=== PATIENT | female | born 1965 | race Caucasian/White ===

== ENCOUNTER → 2019-12-18 10:45 | Outpatient (BNVA) | payer MEDICARE, MEDICAID, SELFPAY | PROVIDERS: Family Provider Family Medicine; PCP Family Medicine; Visit Provider Obstetrics & Gynecology | DX: R23.2 Flushing (principal) | CPT/HCPCS: 83001 ==

== ENCOUNTER → 2020-08-17 11:19 | Outpatient (BNVA) | payer MEDICARE, MEDICAID, SELFPAY | PROVIDERS: Family Provider Family Medicine; PCP Family Medicine; Visit Provider Obstetrics & Gynecology | DX: Z87.2 Personal history of diseases of the skin and subcutaneous tissue (principal) | CPT/HCPCS: 88175 ==

== ENCOUNTER → 2020-09-01 10:04 | Outpatient (BNVA) | payer MEDICARE, MEDICAID, SELFPAY | PROVIDERS: Family Provider Family Medicine; PCP Family Medicine; Visit Provider Obstetrics & Gynecology | DX: N83.202 Unspecified ovarian cyst, left side (principal) | CPT/HCPCS: 76830 ==

== ENCOUNTER → 2020-09-15 15:46 | Outpatient (BNVA) | payer MEDICARE, MEDICAID, SELFPAY | PROVIDERS: Family Provider Family Medicine; PCP Family Medicine; Referring Provider Family Medicine; Visit Provider Podiatrist Foot & Ankle Surgery | DX: M79.674 Pain in right toe(s) (principal) | CPT/HCPCS: 73630 ==

== ENCOUNTER 2020-09-27 20:00 | Outpatient (CLI) | payer MEDICARE, MEDICAID, SELFPAY | END 2020-09-27 20:01 | disposition home or self-care (01) | LOC: SLEEP 09-28 14:41 | PROVIDERS: Family Provider Family Medicine; PCP Family Medicine; Visit Provider Family Medicine | DX: G47.33 Obstructive sleep apnea (adult) (pediatric) (principal) | CPT/HCPCS: 95811 ==

== ENCOUNTER 2021-07-31 10:18 | Outpatient (CLI) | payer MEDICARE, MEDICAID, SELFPAY ==
--- NOTE | 2021-07-31 10:26 | CT_ITS ---
WS: [id number] LDCT LUNG CANCER SCREENING HISTORY: HX OF TOBACCO USE TECHNIQUE: Axial imaging performed from the apices to 1 cm below the costophrenic angles. Coronal and sagittal reformats are submitted with axial MIP series. All CT scans at [facility] use at least one of these dose optimization techniques: automated exposure control; mA and/or kV adjustment per patient size (includes targeted exams where dose is matched to clinical indication); or iterativ e reconstruction. DLP: 55.77 mGy.cm DIvol: 1.58 mGy COMPARISON: None available. Diagnostic quality: Suboptimal secondary to body habitus. Lung Nodules: No suspicious nodules. There is a 5 mm intrapulmonary lymph node along the short fissur e. Lungs: Hyperexpanded from emphysema. Heart: Normal size. No effusion. Other findings: Limited evaluation of the mediastinal structures due to body habitus. CT/CT lung screening [id number] IMPRESSION: LUNG-RADS: 2-Benign Appearance or Behavior FOLLOW UP: 12 Month: Continue annual screening with LDCT OTHER FINDINGS (S MODIFIER): None.
--- NOTE | 2021-07-31 11:06 | MM_ITS ---
WS: [id number] BILATERAL SCREENING DIGITAL MAMMOGRAM WITH CAD HISTORY: SCREENING COMPARISON: 12/27/2014 and 08/27/2013 Bilateral CC and MLO views submitted. Computer aided detection analyzed. Breast composition: There are scattered areas of fibroglandular density. No suspicious masses, microc alcifications or architectural distortion. MM/[place] [id number] IMPRESSION: BI-RADS: 1-Negative FOLLOW UP: 1 Year Follow-up
== END 2021-07-31 10:19 | disposition home or self-care (01) ==
PROVIDERS: PCP Physician Assistant; Visit Provider Physician Assistant
DX: Z12.31 Encounter for screening mammogram for malignant neoplasm of breast (principal); Z12.2 Encounter for screening for malignant neoplasm of respiratory organs; Z87.891 Personal history of nicotine dependence
CPT/HCPCS: 71271; 77067

== ENCOUNTER → 2021-08-14 09:52 | Outpatient (BNVA) | payer MEDICARE, MEDICAID, SELFPAY | PROVIDERS: PCP Physician Assistant; Visit Provider Obstetrics & Gynecology | DX: Z87.42 Personal history of other diseases of the female genital tract (principal); N95.0 Postmenopausal bleeding | CPT/HCPCS: 82670; 83001; 88175 ==

== ENCOUNTER → 2021-08-23 09:40 | Outpatient (BNVA) | payer MEDICARE, MEDICAID, SELFPAY | PROVIDERS: PCP Physician Assistant; Visit Provider Obstetrics & Gynecology | DX: N95.0 Postmenopausal bleeding (principal) | CPT/HCPCS: 76830 ==

== ENCOUNTER → 2021-09-22 09:18 | Outpatient (BNVA) | payer MEDICARE, MEDICAID, SELFPAY | PROVIDERS: PCP Physician Assistant; Visit Provider Obstetrics & Gynecology | DX: N95.0 Postmenopausal bleeding (principal); Z20.822 Contact with and (suspected) exposure to COVID-19 | CPT/HCPCS: 87635 ==

== ENCOUNTER 2021-09-28 05:48 | Day surgery (SDC) | payer MEDICARE, MEDICAID, SELFPAY ==
[2021-09-27 10:05] VITALS: BMI 57.1
[2021-09-28 06:11] VITALS: BP 138/82; PULSE 67; RESP 17; TEMP 36.6; O2SAT 97
[2021-09-28] MEDS: sodium chloride 0.9% 1,000 ML 30 ML IV (06:15)
[2021-09-28 06:29] LABS: OR HCG Qualitative Urine Negative (Negative)
[2021-09-28] MEDS: scopolamine 1.5 Patch 1 PATCH TRANSDERMA (06:33)
[2021-09-28 06:43] LABS: Basophils # 0.2 10^3/uL (0.0-0.1); Basophils % 1.6 %; Eosinophils # 0.4 10^3/uL (0.0-0.8); Eosinophils % 4.3 %; Hematocrit 36.8 % (37.0-47.0); Hemoglobin 11.1 g/dL (11.5-15.3); Lymphocytes # 2.5 10^3/uL (0.8-4.8); Lymphocytes % 26.7 %; Mean Corpuscular HGB Conc 30.2 g/dL (30.0-36.0); Mean Corpuscular Hemoglobin 27.6 pg (28.0-34.0); Mean Corpuscular Volume 91.5 fl (81-99); Mean Platelet Volume 11.8 fL (7.4-10.4); Monocytes # 0.4 10^3/uL (0.2-0.9); Monocytes % 4.4 %; Neutrophils # 5.89 10^3/uL (1.8-7.7); Neutrophils % 62.7 %; Nucleated Red Blood Cells % 0 %; Platelet Count 243 10^3/cmm (130-400); Red Blood Count 4.02 10^6/uL (4.1-5.3); Red Cell Distribution Width 14.5 % (12.1-15.1); White Blood Count 9.4 10^3/uL (4.0-10.0)
--- NOTE | 2021-09-28 06:47 | P.HPUD_ITS ---
Surgery/Procedure H&P Update DATE OF PROCEDURE: September 28, 2021 DATE H&P PERFORMED: 08/28/21 H&P UPDATE INFORMATION: I have reviewed H&P completed within last 30 days, I have examined patient prior to procedure, No changes to prior documentation and H&P is in [facility] EMR on date indicated PREOP DIAGNOSIS: Postmenopausal bleeding PLANNED PROCEDURE: Operation Date: 09/28/21 07:00 Proposed Procedures p Hysteroscopy w/ Myosure 27830 [id number] N95.0(Not Applicable) - Estella Lozano MD s Dilation And Curettage (D&C)(Not Applicable) - Estella Quintero MD
[2021-09-28 06:55] LABS: Alanine Aminotransferase 15 U/L (0-33); Albumin Level 3.7 g/dL (3.5-5.2); Alkaline Phosphatase 130 IU/L (35-105); Anion Gap 14.7 (5-19); Aspartate Amino Transferase 16 U/L (0-32); Blood Urea Nitrogen 16 mg/dL (6-20); Calcium 9.2 mg/dL (8.5-10.5); Carbon Dioxide 26 mmol/L (22-29); Chloride 101 mmol/L (98-107); Globulin 3.7 g/dL (1.3-4.6); Glomerular Filtration Rate 86.9 mL/min (90-130); Glucose 106 mg/dL (65-115); Osmolality Calculated 286 mOsm/kg (285-295); Potassium 4.7 mmol/L (3.5-5.1); Sodium 137 mmol/L (136-145); Total Bilirubin 0.3 mg/dL (0.15-1.2); Total Protein 7.4 g/dL (6.6-8.7)
--- NOTE | 2021-09-28 07:00 | P.HP_ITS ---
Same Day Surgery H&P Indication for Procedure/HPI DATE OF PROCEDURE: September 29, 2021 CHIEF COMPLAINT/INDICATIONFOR SURGICAL PROCEDURE: Postmenopausal bleeding PREOP DIAGNOSIS: Postmenopausal bleeding PLANNED PROCEDRUE: Operation Date: 09/28/21 07:00 Proposed Procedures p Hysteroscopy w/ Myosure 27990 04866 N95.0(Not Applicable) - Estella Quintero MD s Dilation And Curettage (D&C)(Not Applicable) - Estella Quintero MD Medications/Allergies* Home Medications Medication Instructions Recorded Confirmed Type amlodipine 5 mg tablet 5 mg PO QDAY 12/08/19 09/28/21 History ferrous sulfate 325 mg (65 mg 325 mg PO QDAY 12/08/19 09/28/21 History iron) tablet fluticasone 250 mcg-salmeterol 50 1 inh INHALATION BID 12/08/19 09/28/21 History mcg/dose blistr powdr for inhalation montelukast 10 mg tablet 10 mg PO QDAY 12/08/19 09/28/21 History omeprazole 20 mg capsule,delayed 20 mg PO QDAY 12/08/19 09/28/21 History release zolpidem 12.5 mg tablet,extended 12.5 mg PO DAILY tab 12/08/19 09/28/21 History release,multiphase tizanidine 4 mg tablet 4 mg PO TID PRN 08/10/20 09/28/21 History furosemide 20 mg tablet 20 mg PO QDAY PRN 10/18/20 09/28/21 History potassium chloride 10 mEq 20 meq PO QDAY PRN 10/18/20 09/28/21 History tablet,extended release albuterol sulfate 90 mcg/actuation 1 inh INHALATION QID 02/08/21 09/28/21 History aerosol inhaler ibuprofen 800 mg tablet 800 mg PO Q6H 02/08/21 09/27/21 History pregabalin 150 mg capsule 150 mg PO BID 05/31/21 09/28/21 History levothyroxine 112 mcg capsule 112 mcg PO DAILY 08/28/21 09/28/21 History cetirizine 10 mg tablet 10 mg PO DAILY 09/19/21 09/28/21 History venlafaxine 37.5 mg 37.5 mg PO DAILY 09/19/21 09/28/21 History capsule,extended release 24 hr Allergies/Adverse Reactions Allergy/AdvReac Type Severity Reaction Status Date / Time budesonide [From Symbicort] Allergy Intermediate Broke out Verified 08/28/21 15:11 inside of her mouth formoterol [From Symbicort] Allergy Intermediate Broke out Verified 08/28/21 15:11 inside of her mouth amoxicillin [From Augmentin] Allergy Unknown Rash Verified 08/28/21 15:11 clavulanic acid Allergy Unknown Rash Verified 08/28/21 15:11 [From Augmentin] clindamycin Allergy Unknown Throat Verified 08/28/21 15:11 swelling gabapentin Allergy Unknown insomnia Verified 08/28/21 15:11 Penicillins Allergy Unknown rash Verified 08/28/21 15:11 doxycycline Allergy ALGY-Bliste Verified 08/28/21 15:11 r duloxetine [From Cymbalta] Allergy Unknown Verified 09/19/21 09:30 codeine AdvReac Unknown Bradycardia Verified 08/28/21 15:11 morphine AdvReac Unknown bradycardia Verified 08/28/21 15:11 Pertinent History/Comorbid Conditions* HPI Ms. Schmitz is a 56 year old 3 para 1113 (twins) with an LMP -menopause in January of 2019 who presents for evaluation of postmenopausal uterine bleeding. -When I first saw her on 08/17/2020 when she followed up with me for evaluation of an abnormal cyst endocervical polyp/identified when patient was in [place] would need to get repeat ultrasound testing and all records from [place] were requested. She had an ultrasound on 09/01/2020 and missed 2 or 3 follow-up visits and finally ended up seeing Dr. Lu to get ultrasound results on 09/26/2020. I last saw her on 10/18/2020 and we discussed findings of the ultrasound which showed a thickened endometrium. I also discussed results of testing obtained from her visit in [place] and based on this we recommended hysteroscopy. She desired to do an office hysteroscopy procedure however missed appointments in October 2020 and in November 2020 and was not compliant with care and did not follow-up. ---> I saw her on 08/14/2021 when she reported postmenopausal bleeding. She states that she has had no vaginal bleeding since achieving menopause. She started to have pain this past Saturday-08/14/2021 and started bleeding vaginally. Her bleeding has not been heavy and usually just enough to stain a couple of panty liners a day. She denies passing clots. She just has lower abdominal cramping in terms of pain and denies any other symptoms. She feels this is because of stress. She states that her sister 1 week ago from a myocardial infarction and her stepdaughter about a month ago from complications of Covid so it has been a pretty tough time for her. -Pelvic exam at that time was overall normal with some brownish blood noted on the cervix. Cotesting was obtained and normal and pelvic ultrasound ordered and she presents today to discuss results. 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 Denies any hospitalizations or intubations for asthma. Symptoms controlled with Advair and albuterol as needed. Managed by PMD-does not have a food and nutrition services supervisor Benign essential HTN Diagnosed in 2016 and followed by cardiology-Dr. Strickland as well as her primary care provider Hypothyroid Diagnosed in 2017 managed by primary care provider. She does not have an insurance account specialist Mixed hyperlipidemia Diagnosed in 2017 managed with medication managed by her primary care provider No pertinent past medical history Denies diabetes, seizures, DVT/PE PCP: Zoraida Pacheco Sleep apnea On CPAP since 2014 Surgical History H/O shoulder surgery 09/23/2013-rotator cuff repair by Dr. Jones at [facility] History of tubal ligation 1989 via umbilical incision S/P cholecystectomy 1989--open procedure via right upper quadrant incision S/P trigger finger release 2013 Family History Brother Diabetes Hyperlipidemia Hypertension Heart disease Mother Hypertension Hyperlipidemia Heart disease Father Hypertension Hyperlipidemia Heart disease Grandmother Ovarian cancer maternal, age at diagnosis unknown Sister Hyperlipidemia Hypertension DVT (deep venous thrombosis) Pulmonary embolism Heart disease of myocardial infarction at age 61 Grandfather Stroke paternal Denies family history of Colon cancer Breast cancer Uterine cancer Social History Smoking and tobacco status: former smoker Alcohol intake: current Alcohol intake frequency: holidays/special occasions only History of recent travel: No Tobacco Use: Started smoking at age 16 and smoked up to one pack per day until she quit in 2005. Denies any tobacco use since then. Drug Use: Reports history of methamphetamine use from [id number]. Denies any drug use since then. Alcohol Use: Drinks socially, twice yearly on average. Work/Study Status: Disabled due to chronic pain. Last [facility] Appointment: 12/18/2019@[email or web address] Other Female Reproductive History: Menstrual History Comment: Menarche at the age of 13, regular 30 day cycles lasting for 7-8 days. She reached menopause in January 2019 and denies any vaginal bleeding since then until 08/11/2021 when she had an episode of postmenopausal bleeding Sexual History: Sexual History Comment: Coitarche at age 17, less than 5 lifetime partners, has been with her current partner, her , Kwaku, since 2016. He does not work as he is disabled due to COPD STD History Comment: Denies history of sexually transmitted diseases Contraception History Comment: Used control pills in the past for contraception. Had a tubal ligation in 1989 and denies any hormones since then. Denies any hormones postmenopausally. History History History 3 Term 1 Miscarriages/Ectopic 1 1 Living Children 3 Other History: , x 2, (Milad Murray and Geo) SAB x 1 1983-SAB, no D&C needed 1987-, uncomplicated 1989-twins, 32 weeks, vaginal delivery Physical Exam Narrative: EXAM NARRATIVE: General: well developed, well nourished, no acute distress Neuro/Psych: alert, oriented to time, place and person. 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) -FSH-58.4-postmenopausal -Estradiol-7.5-postmenopausal range PAP Patient reports abnormal Pap smears in the past. 08/14/2021----([facility])--[facility]--->Negative for intraepithelial lesion or malignancy., negative high risk HPV. 08/17/2020---([facility])----> negative for intraepithelial lesion or malignancy, negative high-risk HPV 03/03/2020---([place])-----> negative endothelial lesion or malignancy, POSITIVE HIGH RISK HPV(scanned) HAND KNITTER Ultrasound 4) 08/23/2021([facility]) --------> the uterus measures 5.7 x 3.3 x 4.0 cm and is anteverted. The endometrium is thickened and heterogenous measuring 1.7 cm. No obvious masses noted. The left ovary measures 2.4 x 1.7 x 1.4 cm and the right ovary measures 2.1 x 2.4 x 1.8 cm with calcifications. No other adnexal masses, no free fluid. 3) 09/01/2020- ([facility]-h/o polyp) -The uterus is anteverted measuring 7.1 x 2.9 x 4.7 cm with a fundal fibroid measuring 1.1 x 1.2 x 1.1 cm. The endometrium measures 7.8 mm. The right ovary measures 2.0 x 1.4 x 1.5 cm and the left ovary measures 2.0 x 1.7 x 2.6 cm. There is a calcified left ovarian cyst measuring 1.2 x 1.2 cm. No free fluid noted. 2) sonogram from [place], [place] has been requested but not received. 1) 12/07/13-([facility])-menorrhagia -Bilateral ovaries appeared normal with no cysts, uterus measured 8.1 x 3.9 x 4.6 cm, anteverted with a heterogeneous myometrium containing a 1.3 x 1.3 x 1.6 cm fibroid on the right anterior side. Endometrial stripe is heterogeneous measuring 1.2 cm. No free fluid in the cul-de-sac. Mammogram Denies abnormal mammograms or breast biopsies in the past. 07/31/2021 -----([facility])----> BI-RADS 1. Negative. Recommend annual screening mammogram 2018-----([facility])---->normal per patient. 12/27/14-----([facility])---->BI-RADS category 2B. Benign findings, recommend repeat mammogram in one year Last mammogram was normal in 2012. Colonoscopy 2018---([facility])--->Normal per patient. (Rectal bleeding) Radiology 1) Endometrial Biopsy: 12/17/2013-evaluation of menorrhagia -MID secretory endometrium, post ovulatory day 5-7 Assessment & Plan Assessment & Plan (1) Postmenopausal bleeding: Assessment & Plan - Estella Quintero MD: -I explained that any amount of bleeding after attaining menopause needed to be evaluated. I discussed that the differential diagnosis for postmenopausal bleeding is atrophic endometrium, polyps, endometrial growths endometrial hyperplasia, endometrial cancer versus normal endometrium. Discussed that the most common cause of bleeding is atrophic endometrium and not malignancy however it does need evaluation. She understands this. -Discussed results of blood work-FSH and estradiol that would definitely postmenopausal. Discussed results of cotesting which were negative on 08/14/2021 -Reviewed with her that the most recent ultrasound we have from August 2020 did show thickened endometrium and that she has been noncompliant with follow-up and recommendations of hysteroscopy. -Reviewed results of the ultrasound done on 08/23/2021 that continued to show thickened endometrium much bigger than last year now measuring 1.7 cm. My concern is that there is a polyp or some other pathology and I would definitely recommend a hysteroscopy. -Given my high suspicion for some sort of endometrial lesion I would not recommend an office procedure as I feel like she will require operative in tervention and I would recommend this be done in the operating room. Discussed procedure of hysteroscopy dilation and curettage. Discussed use of the Chavez sure device. Discussed risks of bleeding, infection, anesthesia risk, damage to surrounding organs and uterine perforation. All her questions were answered and she desires to proceed with surgery -Discussed importance of being compliant given a high risk for malignancy and hyperplasia with this and I would like to do this as soon as possible pending medical clearance given her multiple other medical problems. -Surgical consents were signed today-08/28/2021 -Covid testing requirements discussed and risk of Covid reviewed with patient -Patient to be scheduled for surgery on 09/14/2021 and needs medical clearance prior to surgery --All her questions were answered and she agrees with the current plan of care. I spent 45 minutes with the patient in discussion and counseling as documented above This documentation was created by [employer] utilities estimator and drafter software (known for inherent utilities estimator and drafter error). Every effort was made to assure accuracy of utilities estimator and drafter. Any obvious errors or omissions should be clarified with the author of the document. Status: Acute Code(s): N95.0 - Postmenopausal bleeding (2) Thickened endometrium: Assessment & Plan - Estella Quintero MD: -Reviewed with her findings from previous visits and discussed that she was supposed to have follow-up for her thickened endometrium/endocervical/endometrial polyp however she was lost to follow-up. Patient states that she just forgot about it and that she had no problems did not see the need to follow-up. -Reviewed records that were [facility] by Dr. Corcoran.. Patient was seen on 03/03/2020 and was told by her primary care doctor that she had a Endo cervical polyp. This was attempted to be removed that day and Pap smear collected. Incomplete removal was documented by Dr. Alcazar and the plan was to repeat an ultrasound and possibly do hysteroscopy. Patient presented back for reevaluation on 05/26/2020 and ultrasound shows a mass of polyp in the endocervix and she was scheduled for a hysteroscopy. Records have been scanned into the computer. -----> discussed with the results of ultrasound done on 09/01/2020-largely normal except for slightly thickened endometrium measuring 7.8 mm. Reviewed normal postmenopausal endometrial thickness and discussed that with records received there is concern for an endometrial polyp and I would recommend some sort of visualization of the endometrial cavity. -Patient to be scheduled for hysteroscopy-see discussion above Status: Acute Pertinent Exam Findings alert, oriented x 3, clear to auscultation bilaterally and regular rate & rhythm Recommendations Surgery/Procedure today Coding Level of Care Code Acute Entry Level Marketing Representative for Allie Meneses
--- NOTE | 2021-09-28 07:03 | P.ANESASSM_ITS ---
Pre-Anesthetic Assessment Pre-Anesthetic Assessment: Height/Weight: Height 1.78 m Weight 180.53 kg Temp Pulse Resp BP Pulse Ox 97.8 F 67 17 138/82 97 09/28/21 06:11 09/28/21 06:11 09/28/21 06:11 09/28/21 06:11 09/28/21 06:11 Preop Diagnosis: Postmenopausal bleeding Proposed Procedure: Operation Date: 09/28/21 07:00 Proposed Procedures p Hysteroscopy w/ Myosure 85751 30348 N95.0(Not Applicable) - Estella Lozano MD s Dilation And Curettage (D&C)(Not Applicable) - Estella Quintero MD Was Beta April taken within 24 hours: N/A Was Clonidine taken within 24 hours: N/A Last intake: Intake Last Liquid Date 09/27/21 Last Liquid Time 20:00 Last Solid Date 09/27/21 Last Solid Time 20:00 Social: Social History: No tobacco Exam: Pre-Anes Outpt Exam: alert, oriented x 3, clear to auscultation bilaterally and regular rate & rhythm Airway: Submandibular: WNL Cervical ROM: WNL MP: 2 Additional comments: No teeth. History/ROS: No significant history except as noted and No significant complaints Pulmonary: Pulmonary: Sleep apnea GI: GI: GERD Metabolic: Metabolic: Morbid obesity and Thyroid Comments: BMI 57 Anesthetic Plan: ASA status: 3 Anesthesia: Anesthesia Evaluation, General and MAC Risk of > 500 ml blood loss (7ml/kg in children): No Meds/Allergies 2 Current Medications: Current Medications Generic Name Dose Route Start Last Admin Trade Name Freq PRN Reason Stop Dose Admin Sodium Chloride 1,000 mls @ 30 ml s/hr 09/28/21 06:00 09/28/21 06:15 Sodium Chloride 0.9% IV 09/29/21 05:59 30 mls/hr .Q24H PEARL Administration PFSH Anesthesia PFSH: Medical History Asthma Diagnosed in the 1980s. Denies any hospitalizations or intubations for asthma. Symptoms controlled with Advair and albuterol as needed. Managed by PMD-does not have a pulmonologist intensivist Benign essential HTN Diagnosed in 2017 and followed by cardiology-Dr. Strickland as well as her primary care provider Hypothyroid Diagnosed in 2017 managed by primary care provider. 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 Jones at [facility] [place] History of tubal ligation 1989 via umbilical incision S/P cholecystectomy 1989--open procedure via right upper quadrant incision S/P trigger finger release 2013 Family History Brother Diabetes Hyperlipidemia Hypertension Heart disease Mother Hypertension Hyperlipidemia Heart disease Father Hypertension Hyperlipidemia Heart disease Grandmother Ovarian cancer maternal, age at diagnosis unknown Sister Hyperlipidemia Hypertension DVT (deep venous thrombosis) Pulmonary embolism Heart disease of myocardial infarction at age 61 Grandfather Stroke paternal Denies family history of Colon cancer Breast cancer Uterine cancer Social History Smoking and tobacco status: former smoker Alcohol intake: current Alcohol intake frequency: holidays/special occasions only History of recent travel: No Data Anesthesia CBC & Chem 7: 09/28/21 06:15 09/28/21 06:15 Other Labs: Laboratory Results - last 48 hr 09/28/21 09/28/21 09/28/21 06:15 06:15 06:16 WBC 9.4 RBC 4.02 L Hgb 11.1 L Hct 36.8 L MCV 91.5 MCH 27.6 L MCHC 30.2 RDW 14.5 Plt Count 243 MPV 11.8 H Neut % (Auto) 62.7 Lymph % (Auto) 26.7 Lyman % (Auto) 4.4 Eos % (Auto) 4.3 Baso % (Auto) 1.6 Neut # (Auto) 5.89 Lymph # (Auto) 2.5 Lyman # (Auto) 0.4 Eos # (Auto) 0.4 Baso # (Auto) 0.2 H Nucleated RBC % (auto) 0 Nucleated RBCs # 0.0 Sodium 137 Potassium 4.7 Chloride 101 Carbon Dioxide 26 Anion Gap 14.7 BUN 16 Creatinine 0.7 GFR Calculation 86.9 L Glucose 106 Calculated Osmolality 286 Calcium 9.2 Total Bilirubin 0.3 AST 16 ALT 15 Alkaline Phosphatase 130 H Total Protein 7.4 Albumin 3.7 Globulin 3.7 Urine HCG, Qual Negative Cardiac Studies: No Data to Display
[2021-09-28 07:46] VITALS: BP 129/75; PULSE 70; RESP 18; TEMP 36.4; O2SAT 98
[2021-09-28 07:50] VITALS: BP 154/72; PULSE 69; RESP 20; O2SAT 97
[2021-09-28 07:55] VITALS: BP 124/69; PULSE 70; RESP 20; TEMP 36.8; O2SAT 97
--- NOTE | 2021-09-28 07:57 | PM.OP ---
Operative Report Date of procedure: September 28, 2021 OPERATIVE REPORT Date of surgery: 09/28/2021 Date of dictation: 09/28/2021 Preoperative diagnosis: Postmenopausal bleeding, suspected endometrial polyp Postoperative diagnosis/findings: Grade 3 rectocele, grade 1 cystocele and uterine prolapse, prolapsing vaginal wall, small midposition uterus. Normal endocervical cavity, normal endometrial cavity with thinned out endometrium except for a 1 cm polyp near the left tubal ostia on the anterior wall. Bilateral ostia visualized. Fluid deficit was 200 mL Procedure done: Hysteroscopy, endometrial polypectomy and curettage with MyoSure Specimens removed/disposition of specimens: Endometrial curettings with endometrial polyp Surgeon: Dr. Estella Shields Lead Dental Assistant: Osiris Anesthesia: MAC Estimated blood loss: Less than 25 ml Intravenous fluids: 500 Urine output: 20 mL of urine via red rubber catheter Medications: As per anesthesia records Complications: None PROCEDURE: After consent was obtained patient was taken to the operating room where she is placed under MAC without any difficulty. She was placed supine on the table in lithotomy position. Care was taken to ensure that her legs were well positioned to avoid pressure points. She was then prepped and draped in the usual sterile fashion. Exam under anesthesia was done at this time which showed findings noted above. The weighted speculum and lateral vaginal wall retractors were placed in the vagina and the cervix was visualized. The cervix appeared normal. The cervix was dilated to a 16 Collins dilator without any difficulty . This allowed placement of a Myosure hysteroscope into the uterine cavity without any difficulty. Once the hysteroscope was placed in the uterine cavity, the endocervical canal was visualized and appeared normal .the uterine cavity was visualized and thin endometrium was noted on all graf and a single 1 cm polyp was noted near the left tubal ostia arising from the anterior wall. The MyoSure lite was introduced and under direct visualization this polyp was removed without any difficulty. The Chavez sure was then used to take sampling of the endometrium from all 4 uterine graf. The endometrial curettings with polyp were sent to pathology . All instruments were withdrawn from the uterus. No active bleeding was noted from the cervix. Tenaculum was removed and no bleeding was noted from the cervix. Good hemostasis was achieved. All instruments were removed from the vagina. Patient was cleaned well and anesthesia was reversed without any difficulty. She was taken to the recovery in a stable condition. FOLLOW UP: Follow-up in 2 weeks and 6 weeks with surgeon MEDICATION ON DISCHARGE: Colace 100 mg by mouth every 12 hours when necessary constipation-patient has medication at home Ibuprofen 800 mg by mouth every 8 hours when necessary pain-patient has medication at home. Continue other home medication DISPOSITION: Home in a stable condition This documentation was created by [employer] pressure tester software (known for inherent pressure tester error). Every effort was made to assure accuracy of pressure tester. Any obvious errors or omissions should be clarified with the author of the document. Pre-op Diagnosis: Postmenopausal bleeding
[2021-09-28 07:58] VITALS: BP 164/67; PULSE 65; RESP 18; TEMP 36.8; O2SAT 97
[2021-09-28 08:14] VITALS: BP 150/66; PULSE 61; RESP 18; TEMP 36.7; O2SAT 97
--- NOTE | 2021-09-28 15:30 | ANE.PACU2 ---
Inpatient post-anesthesia follow up: Airway intact: Yes Vital signs: Temperature 98.1 F Pulse Rate 61 Respiratory Rate 18 Blood Pressure 150/66 Pulse Oximetry 97 Oxygen Delivery Me thod Room Air Oxygen Flow Rate 8 Fraction of Inspir ed Oxygen Hydration adequate: Yes Nausea and vomiting: No Pain level: 2 Mental status: Baseline
== END 2021-09-28 08:47 | disposition home or self-care (01) ==
PROVIDERS: PCP Physician Assistant; Visit Provider Obstetrics & Gynecology
PROC: 0UDB8ZZ Extraction of Endometrium, Via Natural or Artificial Opening Endoscopic (ICD-10-PCS; CPT 58558; principal; 2021-09-28 07:00)
PROC: (CPT 58120; 2021-09-28 07:00)
DX: N95.0 Postmenopausal bleeding (principal); N84.8 Polyp of other parts of female genital tract; N81.4 Uterovaginal prolapse, unspecified; N81.6 Rectocele; I10 Essential (primary) hypertension; E03.9 Hypothyroidism, unspecified; R93.89 Abnormal findings on diagnostic imaging of other specified body structures; Z88.1 Allergy status to other antibiotic agents; Z88.5 Allergy status to narcotic agent; Z88.0 Allergy status to penicillin; Z98.51 Tubal ligation status; Z87.891 Personal history of nicotine dependence
CPT/HCPCS: 58558; 36415; 80053; 81025; 84703; 85025; 88305; J2250; J2405; J2704; J3010; J7030

== ENCOUNTER 2021-11-15 08:56 | Outpatient (CLI) | payer MEDICARE, MEDICAID, SELFPAY ==
[2021-11-15 07:12] VITALS: BP 126/79; PULSE 76; RESP 19; TEMP 36.9; O2SAT 98
[2021-11-15 10:10] VITALS: BMI 55.6
[2021-11-15 10:22] VITALS: BP 131/76; PULSE 67; RESP 17; TEMP 36.5; O2SAT 98
[2021-11-15 11:22] VITALS: BP 136/74; BP 136/76; PULSE 66; RESP 18; RESP 8; TEMP 36.7; O2SAT 99
== END 2021-11-15 08:57 | disposition home or self-care (01) ==
PROVIDERS: PCP Physician Assistant; Visit Provider Nurse Practitioner
DX: U07.1 COVID-19 (principal)
CPT/HCPCS: 96365

== ENCOUNTER 2022-05-04 12:45 | Outpatient (CLI) | payer OTHER, MEDICAID, SELFPAY ==
--- NOTE | 2022-05-04 13:10 | CT_ITS ---
WS: [id number] CT LUMBAR SPINE, noncontrast. HISTORY: LOW BACK PAIN TECHNIQUE: Contiguous 2.5 mm axial imaging are performed. Sagittal and coronal reformats are submitte d and reviewed. All CT scans at [facility] use at least one of these dose optimization techni ques: automated exposure control; mA and/or kV adjustment per patient size (includes targeted exams w here dose is matched to clinical indication); or iterative reconstruction. IV contrast: None DLP: 1837.40 mGy.cm COMPARISON: None available. Quality of this examination is compromised by body habitus. Posterior lumbar alignment is normal. Dis c desiccation and vacuum disc phenomenon at L5-S1. No lumbar spine fracture identified. Pedicles are all intact. Air in the SI joints bilaterally. L1-2: Mild asymmetric disc bulging with a central disc protrusion. No stenosis. L2-3: Normal. L3-4: Mild disc bulging with ligamentum flavum hypertrophy. No stenosis. L4-5: Mild disc bulging. RIGHT foraminal disc protrusion without significant stenosis. There is very slight disc encroachment upon the RIGHT lateral thecal sac. Mild encroachment into the RIGHT subartic ular recess and on the RIGHT L5 nerve root. L5-S1: Mild osteophytic ridging. Mild disc bulging slightly greater to the RIGHT. There is moderate b ilateral foraminal stenosis due to disc and facet and osteophyte disease. Mild atherosclerosis aorta. Liver is markedly enlarged. Spleen is also enlarged. Liver measures 20 cm in length and the spleen is estimated at 16 cm in length. Similar to the prior study of 12/14/[address]/CT lumbar spine wo con* [id number] IMPRESSION: 1. No acute lumbar spine fracture. 2. Moderate bilateral foraminal stenosis at L5-S1 due to combination of disc, facet and osteophyte disease. 3. Very minimal disc encroachment into the RIGHT subarticular recess at L5 wit h mild contact on the RIGHT L5 nerve root. 4. Hepatosplenomegaly. Similar to the prior study of 12/14/2016.
== END 2022-05-04 12:46 | disposition home or self-care (01) ==
LOC: RAD 12:50
PROVIDERS: PCP Electrodiagnostic Medicine; Visit Provider Physician Assistant
DX: M54.50 Low back pain, unspecified (principal)
CPT/HCPCS: 72131

== ENCOUNTER 2022-06-05 06:00 | Outpatient (RCR) | payer MEDICARE, MEDICAID, SELFPAY | END 2022-06-17 23:59 | disposition home or self-care (01) | LOC: SPT 06:00 | PROVIDERS: PCP Electrodiagnostic Medicine; Referring Provider Electrodiagnostic Medicine; Visit Provider Electrodiagnostic Medicine | DX: M54.50 Low back pain, unspecified (principal) | CPT/HCPCS: 97161 ==

== ENCOUNTER → 2022-07-09 08:08 | Outpatient (BNVA) | payer MEDICARE, MEDICAID, SELFPAY | PROVIDERS: PCP Electrodiagnostic Medicine; Visit Provider Podiatrist Foot & Ankle Surgery | DX: G57.62 Lesion of plantar nerve, left lower limb (principal); M79.671 Pain in right foot; R20.2 Paresthesia of skin; G57.30 Lesion of lateral popliteal nerve, unspecified lower limb | CPT/HCPCS: 20600; 99213; 99214; J1100; J3301; J3490 ==

== ENCOUNTER → 2022-08-23 09:57 | Outpatient (BNVA) | payer MEDICARE, MEDICAID, SELFPAY | PROVIDERS: PCP Electrodiagnostic Medicine; Visit Provider Obstetrics & Gynecology | DX: N95.0 Postmenopausal bleeding (principal) | CPT/HCPCS: 76830 ==

== ENCOUNTER 2022-08-30 09:00 | Outpatient (CLI) | payer MEDICARE, MEDICAID, SELFPAY ==
--- NOTE | 2022-08-30 09:26 | XR_ITS ---
WS: [email or web address] Mandible series, 4 views, 08/30/2022 Clinical Data: JAW PAIN Comparison: Mandible series, 08/08/2022 Findings: No mandible fractures are seen. There is no change from the prior study. The temporomandibular joints are in good position with no erosion, narrowing or sclerosis. The patient is edentulous. No bone estelita truction or erosion is seen. XR/XR mandible min 4V [id number] Impression: Negative mandible series unchanged.
== END 2022-08-30 09:01 | disposition home or self-care (01) ==
LOC: RAD 09:03
PROVIDERS: PCP Electrodiagnostic Medicine; Visit Provider Specialist
DX: R68.84 Jaw pain (principal); G57.62 Lesion of plantar nerve, left lower limb; G57.32 Lesion of lateral popliteal nerve, left lower limb; R20.2 Paresthesia of skin
CPT/HCPCS: 70110; 99213

== ENCOUNTER 2022-09-21 06:52 | Outpatient (CLI) | payer MEDICARE, MEDICAID, SELFPAY ==
--- NOTE | 2022-09-21 | CT_ITS ---
WS: [email or web address] Exam: CT neck w con* [id number] Date/Time of Exam: 09/21/2022 7:16 AM Reason For Exam: PAIN DLP: 358.[address] scans at [facility] use at least one of these dose optimization techniques: automated e xposure control; mA and/or kV adjustment per patient size (includes targeted exams where dose is matc hed to clinical indication); or iterative reconstruction. The neck is evaluated in the axial plane wi th sagittal and coronal reformatted images. Intravenous contrast was administered. A single slightly prominent lymph node noted in the right neck at about the level of the hyoid bone m easures slightly over 1 cm greatest short axis dimension. No other sign of significant lymphadenopath y in the neck. The airway is patent. The submandibular glands and parotid glands are symmetrical side to side. No mass is seen in the region of the tongue base. Vascular structures are unremarkable. Unr emarkable thyroid gland. Visualized upper lung tyler are clear. Degenerative disc narrowing at C5-6 with spondylosis. Osseous structures of the neck are otherwise intact. CT/CT neck w con* [id number] IMPRESSION: 1. Single mildly prominent lymph node in the right neck at about the level of t he hyoid bone. This measures slightly over 1 cm greatest short axis dimension. 2. No evidence of neck mass or other significant finding.
[2022-09-21] MEDS: iohexol 350 mg/mL 100 mL Btl IV (07:16)
== END 2022-09-21 06:53 | disposition home or self-care (01) ==
LOC: RAD 06:52
PROVIDERS: PCP Electrodiagnostic Medicine; Visit Provider Specialist
DX: R68.84 Jaw pain (principal)
CPT/HCPCS: 36415; 70491; 80048; 83880; 85025

== ENCOUNTER → 2022-09-27 13:00 | Outpatient (BNVA) | payer MEDICARE, MEDICAID, SELFPAY | PROVIDERS: PCP Electrodiagnostic Medicine; Visit Provider Obstetrics & Gynecology | DX: N95.0 Postmenopausal bleeding (principal); N39.0 Urinary tract infection, site not specified | CPT/HCPCS: 81000; 87086 ==

== ENCOUNTER → 2022-11-01 11:03 | Outpatient (BNVA) | payer MEDICARE, MEDICAID, SELFPAY | PROVIDERS: PCP Electrodiagnostic Medicine; Visit Provider Internal Medicine Cardiovascular Disease | DX: R06.02 Shortness of breath (principal); Z79.01 Long term (current) use of anticoagulants; I10 Essential (primary) hypertension; E03.9 Hypothyroidism, unspecified; E78.2 Mixed hyperlipidemia; G47.33 Obstructive sleep apnea (adult) (pediatric); I49.8 Other specified cardiac arrhythmias; R00.2 Palpitations | CPT/HCPCS: 99214 ==

== ENCOUNTER → 2022-11-01 12:29 | Outpatient (BNVA) | payer MEDICARE, MEDICAID, SELFPAY | PROVIDERS: PCP Electrodiagnostic Medicine; Visit Provider Internal Medicine Cardiovascular Disease | DX: R06.02 Shortness of breath (principal); Z79.01 Long term (current) use of anticoagulants; I10 Essential (primary) hypertension; E03.9 Hypothyroidism, unspecified; E78.2 Mixed hyperlipidemia; I49.8 Other specified cardiac arrhythmias; G47.33 Obstructive sleep apnea (adult) (pediatric); R00.2 Palpitations | CPT/HCPCS: 36415; 80048; 83880; 85025 ==

== ENCOUNTER 2022-11-08 10:34 | Outpatient (CLI) | payer MEDICARE, MEDICAID, SELFPAY ==
[2022-11-08 13:04] LABS: Anion Gap 17.1 (5-19); Blood Urea Nitrogen 29 mg/dL (6-20); Calcium 9.2 mg/dL (8.5-10.5); Carbon Dioxide 27 mmol/L (22-29); Chloride 99 mmol/L (98-107); Glomerular Filtration Rate 33.3 mL/min (90-130); Glucose 109 mg/dL (65-115); NT Pro B Type Natriuretic Pept 46 pg/mL (0-125); Osmolality Calculated 294 mOsm/kg (285-295); Potassium 4.1 mmol/L (3.5-5.1); Sodium 139 mmol/L (136-145)
== END 2022-11-08 10:35 | disposition home or self-care (01) ==
LOC: LAB 10:39
PROVIDERS: PCP Electrodiagnostic Medicine; Visit Provider Internal Medicine Cardiovascular Disease
DX: E87.70 Fluid overload, unspecified (principal)
CPT/HCPCS: 80048; 83880

== ENCOUNTER → 2022-11-22 13:39 | Outpatient (BNVA) | payer MEDICARE, MEDICAID, SELFPAY | PROVIDERS: PCP Electrodiagnostic Medicine; Visit Provider Internal Medicine Cardiovascular Disease | DX: R06.02 Shortness of breath (principal); I10 Essential (primary) hypertension; E78.2 Mixed hyperlipidemia; G47.33 Obstructive sleep apnea (adult) (pediatric); I49.8 Other specified cardiac arrhythmias; Z87.891 Personal history of nicotine dependence | CPT/HCPCS: 99214; Q3014 ==

== ENCOUNTER 2022-11-23 08:48 | Outpatient (CLI) | payer MEDICARE, MEDICAID, SELFPAY ==
--- NOTE | 2022-11-23 08:58 | CTR_ITS ---
PROCEDURE INFORMATION: Exam: CT Chest With Contrast; Diagnostic Exam date and time: 11/23/2022 9:39 AM Age: 57 years old Clinical indication: Condition or disease; Lung condition and disease; Pulmonary nodule, solitary; Additional info: Lung nodules f/u TECHNIQUE: Imaging protocol: Diagnostic computed tomography of the chest with contrast. Radiation optimization: All CT scans at this facility use at least one of these dose optimization techniques: automated exposure control; mA and/or kV adjustment per patient size (includes targeted exams where dose is matched to clinical indication); or iterative reconstruction. Contrast material: OMNIPAQUE 350; Contrast volume: 95 ml; Contrast route: INTRAVENOUS (IV); COMPARISON: CT lung screening [id number] 07/31/2021 10:45 AM RADIATION DOSE METRICS: Total DLP (mGy-cm): 737.97 FINDINGS: Lungs: No consolidation. Unchanged triangular shaped nodules along the right minor and left major fissures, the largest in the anterior right middle lobe, measuring approximately 0.8 cm, consistent with perifissural lymph nodes. There is an additional unchanged triangular shaped nodule in the lateral left lower lobe measuring 0.4 cm, consistent with intrapulmonary lymph node. Unchanged 0.3 cm subpleural nodule about the posterior aspect of the left upper lobe, likely representing additional intrapulmonary lymph node. No new or suspicious lung nodule seen. No mass. Tiny calcified granulomas are seen in the right upper and left lower lobes. Pleural spaces: Unremarkable. No pneumothorax. No pleural effusion. Heart: Unremarkable. No cardiomegaly. No pericardial effusion. Lymph nodes: Multiple small mediastinal and bilateral hilar calcified lymph nodes noted, likely sequela of previous granulomatous disease. Vasculature: Unchanged ectatic ascending aorta measuring 4.3 cm in diameter. Bones/joints: Degenerative changes of the spine seen. Soft tissues: Unremarkable. CT/CT chest w con* [id number] IMPRESSION: 1. Stable small bilateral perifissural and intrapulmonary lymph nodes. No suspicious lung nodule or mass identified. 2. Unchanged ectatic ascending aorta.
[2022-11-23] MEDS: iohexol 350 mg/mL 500 mL Btl (per mL) IV (10:47)
== END 2022-11-23 08:49 | disposition home or self-care (01) ==
PROVIDERS: PCP Electrodiagnostic Medicine; Visit Provider Electrodiagnostic Medicine
DX: R91.8 Other nonspecific abnormal finding of lung field (principal); R59.0 Localized enlarged lymph nodes; I77.819 Aortic ectasia, unspecified site
CPT/HCPCS: 71260; Q9967

== ENCOUNTER → 2022-12-26 12:51 | Outpatient (BNVA) | payer MEDICARE, MEDICAID, SELFPAY | PROVIDERS: PCP Electrodiagnostic Medicine; Visit Provider Podiatrist Foot & Ankle Surgery | DX: M19.071 Primary osteoarthritis, right ankle and foot (principal) | CPT/HCPCS: 73630; 99213 ==

== ENCOUNTER 2023-01-16 08:07 | Outpatient (CLI) | payer MEDICARE, MEDICAID, SELFPAY ==
[2023-01-16 09:06] VITALS: BMI 56.2
--- NOTE | 2023-01-16 09:06 | ECG_ITS ---
[facility] Test Date: 2023-01-16 Pat Name: Marlene Schmitz Department: Room: Gender: Female Clinical Ob: : 1965 Requested By: Yaritza Schuler Order Number: [id number] Kayleen MD: Ramesh Strickland M.D. Interpretive Statements NAME OF STUDY: LEXISCAN SESTAMIBI STRESS TEST INDICATION: Shortness of Breath, palpatations, PROCEDURE: At the baseline, the EKG revealed normal sinus rhythm with a poor R wave progression. Minimal left axis deviation.. The baseline heart was 62 bpm with a blood pressue of 116/69 mm of Hg Lexiscan was infused over a period of 20 seconds. A total of 0.4 milligrams of Lexiscan was infused. The stress phase was continued for a total of 5 minutes. Heart rate at the end of the stress phase was 74 bpm with a blood pressure 128/64 mm of Hg. The EKG at the peak infusion revealed no significant changes. Sestamibi was injected 20 seconds after the Lexiscan infusion. Heart rate at the end of the recovery phase was 72 bpm with a blood pressure of 110/54 mm of Hg. CONCLUSION: 1. No significant EKG changes with the LexiScan infusion 2. No LexiScan induced chest pain or cardiac arrhythmia 3. Normal blood pressure and heart rate response 4. Sestamibi/sestamibi perfusion scan pending; see separate report. Electronically Signed On 01-19-2023 16:16:26 STEWARD/STEWARDESS BATH by Ramesh Strickland M.D. [id number]
--- NOTE | 2023-01-16 09:07 | NMCV_ITS ---
NM jenifer perf SPECT r/s* [id number] Marlene Schmitz Age: 57 Gender: F : 1965 Exam Date: 01/16/2023 09:19 Ordering Phys: Yaritza Schuler MD ([email or web address]) Technologist: ANKIT Gutiérrez Exam Location: [facility] Indications: SHORTNESS OF BREATH, CORONARY ANGIOPLASTY STATUS STRESS TEST Please [facility] IMAGE PROTOCOL Rest/Stress 1 Lexiscan Day Radiopharmaceutical Dose (mCi) Administration Site Administered by Rest: Tc-99m 11.0 IV ANKIT Whitney Sestamibi Stress:Tc-99m 33.0 IV ANKIT Whitney Sestamibi Rest: 16-Jan-2023 60 Discovery 630 Stress: 16-Jan-2023 30 Discovery 630 0.4mg Lexiscan. Supine position only as patient was unable to lay prone. SPECT RESULTS Technical Quality: Good Raw Data Analysis: Breast attenuation Image Corrections: No attenuation or motion correction applied Summed Stress Score: 1 Summed Rest Score: 6 Summed Difference Score: 0 PERFUSION FINDINGS Small area of slightly decreased tracer uptake was noted in the mid and apical inferior and apical lateral segments. No significant reversibility was noted in these regions FUNCTIONAL RESULTS (calculated via Gated SPECT) Stress Image LV EF (%): 68 Stress EDV (mL):156 TID: 1.03 Stress ESV (mL):50 FUNCTIONAL FINDINGS: Segmental wall motion analysis revealing no gross wall motion abnormalities IMPRESSIONS 1. Myocardial perfusion imaging revealing small areas of slightly decreased persistent tracer uptake in the mid inferior and apical segments, suggesting myocardial scarring versus attenuation artifact. 2. Normal LV ejection fraction of 68% 3. LV wall motion analysis revealing no gross wall motion abnormalities. 4. Normal LV volume Low probability for coronary ischemia, based on the above findings Dr Ramesh Strickland MD [facility] (Electronically Signed) Final Date: 18 January 2023 08:38 S
[2023-01-16] MEDS: regadenoson 0.4 Mg/5 ml Syringe IVP (10:01)
[2023-01-16 10:14] VITALS: BP 110/54; PULSE 72
== END 2023-01-16 08:08 | disposition home or self-care (01) ==
LOC: CDL 08:09
PROVIDERS: PCP Electrodiagnostic Medicine; Visit Provider Internal Medicine Cardiovascular Disease
DX: R06.02 Shortness of breath (principal); R00.2 Palpitations
CPT/HCPCS: 36415; 78452; 93017; 96374; 99214; A9500; J2785

== ENCOUNTER → 2023-04-01 07:52 | Outpatient (BNVA) | payer MEDICARE, MEDICAID, SELFPAY | PROVIDERS: PCP Electrodiagnostic Medicine; Visit Provider Podiatrist Foot & Ankle Surgery | DX: M19.071 Primary osteoarthritis, right ankle and foot (principal); M72.2 Plantar fascial fibromatosis | CPT/HCPCS: 99213 ==

== ENCOUNTER → 2023-05-23 14:13 | Outpatient (BNVA) | payer MEDICARE, MEDICAID, SELFPAY | PROVIDERS: PCP Electrodiagnostic Medicine; Visit Provider Internal Medicine Cardiovascular Disease | DX: R06.02 Shortness of breath (principal); I10 Essential (primary) hypertension; E78.2 Mixed hyperlipidemia; I49.8 Other specified cardiac arrhythmias; G47.33 Obstructive sleep apnea (adult) (pediatric); Z99.89 Dependence on other enabling machines and devices; Z87.891 Personal history of nicotine dependence | CPT/HCPCS: 99214 ==

== ENCOUNTER → 2023-06-10 09:07 | Outpatient (BNVA) | payer MEDICARE, MEDICAID, SELFPAY | PROVIDERS: PCP Electrodiagnostic Medicine; Visit Provider Podiatrist Foot & Ankle Surgery | DX: M76.71 Peroneal tendinitis, right leg; M76.72 Peroneal tendinitis, left leg; M19.071 Primary osteoarthritis, right ankle and foot | CPT/HCPCS: 99213 ==

== ENCOUNTER 2023-06-21 09:24 | Outpatient (RCR) | payer MEDICARE, MEDICAID, SELFPAY | END 2023-07-18 23:59 | disposition home or self-care (01) | LOC: SPT 09:24 | PROVIDERS: PCP Electrodiagnostic Medicine; Visit Provider Podiatrist Foot & Ankle Surgery | DX: M76.71 Peroneal tendinitis, right leg (principal); M76.72 Peroneal tendinitis, left leg | CPT/HCPCS: 97035; 97110; 97140; 97162 ==

== ENCOUNTER → 2023-10-23 09:14 | Outpatient (BNVA) | payer MEDICARE, MEDICAID, SELFPAY | PROVIDERS: PCP Electrodiagnostic Medicine; Visit Provider Podiatrist Foot & Ankle Surgery | DX: M76.71 Peroneal tendinitis, right leg; L60.3 Nail dystrophy; M19.071 Primary osteoarthritis, right ankle and foot | CPT/HCPCS: 99213 ==

== ENCOUNTER 2023-12-03 14:40 | Emergency (ER) | payer MEDICARE, MEDICAID, SELFPAY ==
--- NOTE | 2023-12-03 14:41 | ECG_ITS ---
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 Measurements Intervals [place] Rate: 74 P: 50 MO: 177 QRS: -29 QRSD: 102 T: 50 QT: 383 QTc: 425 Interpretive Statements SINUS RHYTHM MODERATE VOLTAGE CRITERIA FOR LVH, CONSIDER NORMAL VARIANT [MEETS CRITERIA IN ONE OF: R(aVL), S(V1), R(V5), R(V5/V6)+S(V1)] POSSIBLE ANTERIOR MYOCARDIAL INFARCTION , OF INDETERMINATE AGE [30 ms Q WAVE IN V3/V4, OR R < 0.2 mV IN V4] No previous ECG available for comparison Electronically Signed On 12-03-2023 19:38:00 RAG INSPECTOR by Ramesh Strickland M.D. [id number]
--- NOTE | 2023-12-03 14:41 | XR_ITS ---
WS: [id number] PORTABLE CHEST HISTORY: cp COMPARISON: 01/17/2016 Lungs are clear and well expanded. No pleural effusion or pneumothorax. Cardiac size: Normal. Mediastinum/Aorta: Normal mediastinum. No osseous abnormality seen. IMPRESSION: Unremarkable portable chest.
[2023-12-03 14:58] VITALS: BP 168/85; PULSE 74; RESP 16; TEMP 36.7; O2SAT 93; BMI 55.7
[2023-12-03 15:17] LABS: Basophils # 0.2 10^3/uL (0.0-0.1); Basophils % 1.1 %; Eosinophils # 0.3 10^3/uL (0.0-0.8); Eosinophils % 2.2 %; Hematocrit 39.2 % (36-47); Lymphocytes # 2.3 10^3/uL (0.8-4.8); Lymphocytes % 15.3 %; Mean Corpuscular HGB Conc 30.9 g/dL (30-55); Mean Corpuscular Hemoglobin 28.3 pg (27-33); Mean Corpuscular Volume 91.8 fl (85-98); Mean Platelet Volume 11.3 fL (7.4-10.4); Monocytes # 0.7 10^3/uL (0.2-0.9); Monocytes % 4.6 %; Neutrophils # 11.51 10^3/uL (1.8-7.7); Neutrophils % 76.3 %; Nucleated Red Blood Cells % 0 %; Platelet Count 317 10^3/cmm (157-399); Red Blood Count 4.27 10^6/uL (3.85-5.65); Red Cell Distribution Width 14.2 % (12.1-15.1); White Blood Count 15.07 10^3/uL (3.29-11.43)
[2023-12-03 15:37] LABS: Troponin(5th) Baseline < 6 ng/L (0-10)
[2023-12-03 15:46] LABS: Alanine Aminotransferase 18 U/L (0-33); Albumin Level 4.1 g/dL (3.5-5.2); Alkaline Phosphatase 167 U/L (35-105); Anion Gap 16.2 (5-19); Aspartate Amino Transferase 15 U/L (0-32); Blood Urea Nitrogen 16 mg/dL (6-20); Calcium 9.2 mg/dL (8.5-10.5); Carbon Dioxide 27 mmol/L (22-29); Chloride 101 mmol/L (98-107); Globulin 3.3 g/dL (1.3-4.6); Glomerular Filtration Rate 64.5 mL/min (90-130); Glucose 103 mg/dL (65-115); Lipase 19 U/L (13-60); Osmolality Calculated 291 mOsm/kg (285-295); Potassium 4.2 mmol/L (3.5-5.1); Sodium 140 mmol/L (136-145); Total Bilirubin 0.3 mg/dL (0.15-1.2); Total Protein 7.4 g/dL (6.6-8.7)
--- NOTE | 2023-12-03 16:19 | PC.NURSE ---
Pt placed on bedside manager monitoring
--- NOTE | 2023-12-03 16:37 | W.ED.CHESTPA ---
HPI - Chest Pain General: Chief Complaint: Chest Pain Stated Complaint: Chest pain Time Seen by Provider: 12/03/23 16:10 Source: patient Mode of arrival: ambulatory Limitations: no limitations History of Present Illness: 58-year-old female states over the last 2 to 3 days she has been having sharp chest pains. States it has been a sharp burning type pain she is also had increasing burps she denies any fever cough denies any radiation of her pain. Denies any worsening proving factors. Associated symptoms: Deny abdominal pain, dyspnea, fever(s), nausea or vomiting Review of Systems Const: Denies: fever(s), chills, body aches or change in appetite ENMT: Denies: throat pain or dental pain Card: Reports: chest pain Resp: Denies: dyspnea GI: Denies: abdominal pain, nausea, vomiting or diarrhea Musc: Denies: neck pain or back pain Skin/Breast: Denies: rash Neuro: Denies: headache(s) PFSH ED PFSH: Medical History No pertinent past medical history Denies diabetes, seizures, DVT/PE PCP: Zoraida Pacheco Sleep apnea On CPAP since 2014 Hypothyroid Diagnosed in 2017 managed by primary care provider. She does not have an manager bank Mixed hyperlipidemia Diagnosed in 2017 managed with medication managed by her primary care provider Benign essential HTN Diagnosed in 2016 and followed by cardiology-Dr. Strickland as well as her primary care provider Asthma Diagnosed in the . Denies any hospitalizations or intubations for asthma. Symptoms controlled with Advair and albuterol as needed. Managed by PMD-does not have a ssrs report developer Surgical History Status post hysteroscopy 09/28/2021--hysteroscopy, D&C and endometrial polypectomy with MyoSure [place] Dr[place] Shield[place] [facility] ------> pathology showed benign endometrial follow-up and benign myometrial tissue without malignancy or hyperplasia S/P trigger finger release 2013 History of tubal ligation 1989 via umbilical incision S/P cholecystectomy 1989--open procedure via right upper quadrant incision H/O shoulder surgery 09/23/2013-rotator cuff repair by Dr. Jones [place] [facility] Family History Brother Diabetes Hyperlipidemia Hypertension Heart disease CAD (coronary artery disease) Mother Hypertension Hyperlipidemia Heart disease CAD (coronary artery disease), Onset Age: 50 Father Hypertension Hyperlipidemia Heart disease Anesthesia complication CAD (coronary artery disease) Cancer Grandmother Ovarian cancer maternal, age at diagnosis unknown CAD (coronary artery disease) Cancer Sister Hyperlipidemia Hypertension DVT (deep venous thrombosis) Pulmonary embolism Heart disease of myocardial infarction at age 61 CAD (coronary artery disease) Grandfather Stroke paternal CAD (coronary artery disease) Son Chronic kidney disease (CKD) Social History Smoking and tobacco/nicotine status: former use of tobacco/nicotine Alcohol intake: never Substance/Drug Use: never Physical Exam Const: COMMON NORMALS: no acute distress, patient oriented x3 and healthy appearing HENMT: COMMON NORMALS: normocephalic and atraumatic HEAD & SCALP: normocephalic and atraumatic Neck/C-Spine: COMMON NORMALS: full ROM and supple Chest: COMMONS NORMALS: normal inspection of the chest Resp: COMMON NORMALS: normal respiratory effort, No retractions, No use of accessory muscles and clear to auscultation bilaterally AUSCULTATION: clear to auscultation bilaterally Cardio: COMMON NORMALS: regular rate, regular rhythm and No murmurs present (Cardio) RATE: regular rate RHYTHM: regular rhythm Extremity: COMMON NORMALS: normal to inspection and full ROM Neuro: COMMON NORMALS: patient oriented x3, moves all extremities and no focal motor deficits Psych: COMMON NORMALS: mental status grossly normal, Normal thought process present and cooperative THOUGHT PROCESS: Normal thought process present Skin: COMMON NORMALS: no rashes or lesions noted and no wounds GENERAL SKIN EXAM: no rashes or lesions noted Course Vital Signs: Vital signs: Vital Signs Temperature 98.1 F 12/03/23 14:58 Pulse Rate 61 12/03/23 19:18 Respiratory Rate 16 12/03/23 19:18 Blood Pressure 106/56 12/03/23 19:18 Pulse Oximetry 99 12/03/23 19:18 Oxygen Delivery Me thod Room Air 12/03/23 18:00 MDM - Chest Pain Medical Decision Making Patient presents for chest pains atypical in nature patient's troponins EKG and x-ray here are all normal she is stable for discharge she is to follow-up with PCP and return if worsening. Medical Records I reviewed the patient's medical records. Lab Data I reviewed the patient's lab results. 12/03/23 15:08 12/03/23 15:08 Laboratory Results WBC 15.07 10^3/uL (3.29-11.43) H 12/03/23 15:08 RBC 4.27 10^6/uL (3.85-5.65) 12/03/23 15:08 Hgb 12.10 g/dL (11.27-16.99) 12/03/23 15:08 Hct 39.2 % (36-47) 12/03/23 15:08 MCV 91.8 fl (85-98) 12/03/23 15:08 MCH 28.3 pg (27-33) 12/03/23 15:08 MCHC 30.9 g/dL (30-55) 12/03/23 15:08 RDW 14.2 % (12.1-15.1) 12/03/23 15:08 Plt Count 317 10^3/cmm (157-399) 12/03/23 15:08 MPV 11.3 fL (7.4-10.4) H 12/03/23 15:08 Neut % (Auto) 76.3 % 12/03/23 15:08 Lymph % (Auto) 15.3 % 12/03/23 15:08 [place] % (Auto) 4.6 % 12/03/23 15:08 Eos % (Auto) 2.2 % 12/03/23 15:08 Baso % (Auto) 1.1 % 12/03/23 15:08 Neut # (Auto) 11.51 10^3/uL (1.8-7.7) H 12/03/23 15:08 Lymph # (Auto) 2.3 10^3/uL (0.8-4.8) 12/03/23 15:08 [place] # (Auto) 0.7 10^3/uL (0.2-0.9) 12/03/23 15:08 Eos # (Auto) 0.3 10^3/uL (0.0-0.8) 12/03/23 15:08 Baso # (Auto) 0.2 10^3/uL (0.0-0.1) H 12/03/23 15:08 Nucleated RBC % (auto) 0 % 12/03/23 15:08 Nucleated RBCs # 0.0 /100WBC 12/03/23 15:08 Sodium 140 mmol/L (136-145) 12/03/23 15:08 Potassium 4.2 mmol/L (3.5-5.1) 12/03/23 15:08 Chloride 101 mmol/L (98-107) 12/03/23 15:08 Carbon Dioxide 27 mmol/L (22-29) 12/03/23 15:08 Anion Gap 16.2 (5-19) 12/03/23 15:08 BUN 16 mg/dL (6-20) 12/03/23 15:08 Creatinine 0.9 mg/dL (0.5-0.9) 12/03/23 15:08 GFR Calculation 64.5 mL/min (90-130) L 12/03/23 15:08 Glucose 103 mg/dL (65-115) 12/03/23 15:08 Calculated Osmolality 291 mOsm/kg (285-295) 12/03/23 15:08 Calcium 9.2 mg/dL (8.5-10.5) 12/03/23 15:08 Total Bilirubin 0.3 mg/dL (0.15-1.2) 12/03/23 15:08 AST 15 U/L (0-32) 12/03/23 15:08 ALT 18 U/L (0-33) 12/03/23 15:08 Alkaline Phosphatase 167 U/L (35-105) H 12/03/23 15:08 Troponin T Baseline < 6 ng/L (0-10) 12/03/23 15:08 Troponin T 120 Minute 6.00 ng/L (0-10) 12/03/23 17:40 Delta Troponin T 0.50167 ABS# (0-10) 12/03/23 17:40 Total Protein 7.4 g/dL (6.6-8.7) 12/03/23 15:08 Albumin 4.1 g/dL (3.5-5.2) 12/03/23 15:08 Globulin 3.3 g/dL (1.3-4.6) 12/03/23 15:08 Lipase 19 U/L (13-60) 12/03/23 15:08 All radiology interpretation(s) finalized by discharge Discharge Plan Discharge Patient Disposition: Home Clinical Impression: Chest pain Condition: Stable Prescriptions: New Protonix 40 mg tablet,delayed release (DR/EC) 40 mg PO DAILY Qty: 60 0RF No Action tizanidine 4 mg tablet 4 mg PO TID PRN (Reason: Pain) albuterol sulfate 90 mcg/actuation HFA aerosol inhaler 1 inh inhalation QID PRN ibuprofen 800 mg tablet 800 mg PO Q6H PRN pregabalin [Lyrica] 150 mg capsule 150 mg PO BID montelukast 10 mg tablet 10 mg PO QDAY ferrous sulfate 325 mg (65 mg iron) tablet 325 mg PO QDAY omeprazole 20 mg capsule,delayed release(DR/EC) 20 mg PO QDAY furosemide 20 mg tablet 20 mg PO QDAY PRN (Reason: Edema) levothyroxine 112 mcg capsule 112 mcg PO DAILY venlafaxine [Effexor XR] 37.5 mg capsule,extended release 24hr 75 mg PO DAILY venlafaxine [Effexor XR] 150 mg capsule,extended release 24hr 150 mg PO DAILY Qty: 30 5RF docusate sodium [Dulcolax Stool Softener (dss)] 100 mg capsule 100 mg PO DAILY diphenhydramine-acetaminophen [Acetaminophen PM] 25-500 mg tablet 1 tab PO .HS senna 8.6 mg capsule 8.6 mg PO .HS [id number]-ohsbmrbwa-[id number] 333-133-5 mg tablet 1 tab PO DAILY potassium chloride [Klor-Con 10] 10 mEq tablet extended release 20 meq PO QDAY PRN (Reason: Edema) Qty: 90 3RF amlodipine 10 mg tablet 10 mg PO QDAY Qty: 90 3RF lisinopril 40 mg tablet 40 mg PO DAILY Qty: 90 3RF Discharge Orders: Discharge ED (Routine); Ordered 12/03/23 Ordered By: Alexander Kim Referrals: Lm Archibald DO [Primary Care Provider] - 1-3 days Discharge Diet: Advance as tolerated Discharge Activity: Resume usual activity Patient Instructions: Chest Pain (ED) Coding Level of Care Code ED Genetic Scientist for Allie Meneses
[2023-12-03] MEDS: lidocaine 2% viscous 15 ML, aluminum-mag hydrox-simethicon 30 ML, sucralfate oral liq 1 GM PO (16:46)
--- NOTE | 2023-12-03 17:16 | ECG_ITS ---
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 Measurements Intervals [place] Rate: 64 P: 2 CA: 140 QRS: -5 QRSD: 101 T: 44 QT: 389 QTc: 403 Interpretive Statements SINUS RHYTHM LOW QRS VOLTAGE IN PRECORDIAL LEADS [QRS DEFLECTION < 1.0 mV IN CHEST LEADS] POSSIBLE ANTERIOR MYOCARDIAL INFARCTION , OF INDETERMINATE AGE [30 ms Q WAVE IN V3/V4, OR R < 0.2 mV IN V4] Compared to ECG 12/03/2023 14:55:11 Low QRS voltage now present Myocardial infarct finding still present Electronically Signed On 12-03-2023 19:44:46 LARRY CAR OPERATOR by Ramesh Strickland M.D. [id number]
[2023-12-03 17:26] VITALS: PULSE 66; RESP 18; O2SAT 99
[2023-12-03 18:00] VITALS: BP 131/86; PULSE 68; RESP 15; O2SAT 94
[2023-12-03 18:45] LABS: Troponin 5 2HR Delta 0.00001 ABS# (0-10)
[2023-12-03 19:18] VITALS: BP 106/56; PULSE 61; RESP 16; O2SAT 99
== END 2023-12-03 19:19 | disposition home or self-care (01) ==
PROVIDERS: Emergency Provider Emergency Medicine; PCP Electrodiagnostic Medicine
DX: R07.9 Chest pain, unspecified (principal); Z87.891 Personal history of nicotine dependence; E78.2 Mixed hyperlipidemia; I10 Essential (primary) hypertension
CPT/HCPCS: 36415; 71045; 80053; 83690; 84484; 85025; 93005; 99285

== ENCOUNTER → 2023-12-18 09:02 | Outpatient (BNVA) | payer MEDICARE, MEDICAID, SELFPAY | PROVIDERS: PCP Electrodiagnostic Medicine; Visit Provider Podiatrist Foot & Ankle Surgery | DX: M76.71 Peroneal tendinitis, right leg (principal); L60.3 Nail dystrophy | CPT/HCPCS: 99213 ==

== ENCOUNTER → 2023-12-25 09:09 | Outpatient (BNVA) | payer MEDICARE, MEDICAID, SELFPAY | PROVIDERS: PCP Electrodiagnostic Medicine; Visit Provider Nurse Practitioner Family | DX: I10 Essential (primary) hypertension (principal); R07.89 Other chest pain; R94.31 Abnormal electrocardiogram [ECG] [EKG] | CPT/HCPCS: 99214 ==

== ENCOUNTER → 2024-02-26 09:57 | Outpatient (BNVA) | payer MEDICARE, MEDICAID, SELFPAY | PROVIDERS: PCP Electrodiagnostic Medicine; Referring Provider Electrodiagnostic Medicine; Visit Provider Specialist | DX: M25.512 Pain in left shoulder (principal) | CPT/HCPCS: 73030; 99204 ==

== ENCOUNTER → 2024-03-17 10:55 | Outpatient (BNVA) | payer MEDICARE, MEDICAID, SELFPAY | PROVIDERS: PCP Electrodiagnostic Medicine; Visit Provider Orthopaedic Surgery | DX: M54.2 Cervicalgia (principal); M54.9 Dorsalgia, unspecified; M47.22 Other spondylosis with radiculopathy, cervical region | CPT/HCPCS: 72050; 72072; 99204 ==

== ENCOUNTER 2024-04-01 10:41 | Outpatient (CLI) | payer MEDICARE, MEDICAID, SELFPAY ==
--- NOTE | 2024-04-01 11:00 | MR_ITS ---
WS: [email or web address] MRI LEFT SHOULDER HISTORY: left shoulder pain COMPARISON: 02/26/2024 TECHNIQUE: Multiplanar sequences of the shoulder joint are submitted. AC joint arthritis. There is fluid along the AC joint with hypertrophic bone formation. Subchondral c ystic changes in the distal clavicle. Smaller subchondral cyst in the acromion. Small amount of fluid in the subacromial and subdeltoid bursa. No subacromial impingement. Normal position of the biceps t endon. No os acromion. Normal position of the humeral head and the glenoid. No fractures. No rotator cuff muscle atrophy or edema. No rotator cuff tendon tears are identified. There is a small amount of increased fluid in the rotator cuff interval which appears separate from the subscapularis tendon and the biceps tendon. No labral abnormality is identified. Evaluation of the labrum is limited due to body habitus. MR/MR shoulder LT wo con* [id number] IMPRESSION: 1. Advanced facet joint arthritis with osteophytosis and fragments. Fluid vickie g the AC joint. Subchondral cystic changes along the clavicle and acromion. 2. No rotator cuff tear identified. No muscle atrophy or edema. 3. Small amount of fluid in the rotator cuff interval. The adjacent ligaments are normal.
== END 2024-04-01 10:42 | disposition home or self-care (01) ==
LOC: RAD 10:41
PROVIDERS: PCP Electrodiagnostic Medicine; Visit Provider Specialist
DX: M13.812 Other specified arthritis, left shoulder (principal); M89.312 Hypertrophy of bone, left shoulder; M25.812 Other specified joint disorders, left shoulder
CPT/HCPCS: 73221

== ENCOUNTER 2024-04-16 12:39 | Outpatient (CLI) | payer MEDICARE, MEDICAID, SELFPAY ==
--- NOTE | 2024-04-16 13:00 | MR_ITS ---
WS: [email or web address] MRI CERVICAL SPINE NONCONTRAST HISTORY: neck pain COMPARISON: None available. Technique: Multiplanar, multisequence noncontrast imaging of the cervical spine. Straightening and reversal of the normal cervical lordosis. Reversal is centered at C5-6. C5 retrolis thesis by 3 mm. Disc spaces are mildly narrowed and desiccated. No fracture or marrow edema. Signal within the cervical cord is normal. Visualized posterior fossa is unremarkable. Craniocervical junction, C1 and C2 relationship, odontoid process and soft tissues are normal. C2-C3: Normal. C3-C4: Small central disc protrusion and foraminal osteophytes. Mild bilateral foraminal stenosis. C4-C5: Mild osteophytic ridging and disc bulging. Mild facet arthritis. Mild foraminal narrowing. C5-C6: Osteophytic ridging, disc bulging and C5 retrolisthesis. Moderate foraminal stenosis. Bilatera l disc osteophyte complexes. Moderate central and moderate bilateral foraminal stenosis. Hemangioma i n the RIGHT lateral C6 vertebral body. C6-C7: Central disc protrusion with small bilateral foraminal osteophytes. Mild central and RIGHT for aminal stenosis but moderate LEFT foraminal stenosis and facet arthritis. C7-T1: Normal. Paraspinal soft tissue are normal. MR/MR cervical spin wo con* [id number] IMPRESSION: 1. Reversal of the normal cervical lordosis centered at C5-6. 2. C5-6: Moderate central and bilateral foraminal stenosis due to disc and ost eophyte disease. 3. C6-7: Moderate LEFT foraminal stenosis. Mild central and RIGHT foraminal st enosis due to disc and osteophyte disease. 4. C3-4 and C4-5: Mild foraminal stenosis.
== END 2024-04-16 12:40 | disposition home or self-care (01) ==
LOC: RAD 12:39
PROVIDERS: PCP Electrodiagnostic Medicine; Visit Provider Orthopaedic Surgery
DX: M54.2 Cervicalgia (principal); M48.02 Spinal stenosis, cervical region
CPT/HCPCS: 72141

== ENCOUNTER → 2024-04-28 12:58 | Outpatient (BNVA) | payer MEDICARE, MEDICAID, SELFPAY | PROVIDERS: PCP Electrodiagnostic Medicine; Visit Provider Orthopaedic Surgery | DX: Z09 Encounter for follow-up examination after completed treatment for conditions other than malignant neoplasm (principal) | CPT/HCPCS: 99214 ==

== ENCOUNTER → 2024-06-01 15:23 | Outpatient (BNVA) | payer MEDICARE, MEDICAID, SELFPAY | PROVIDERS: PCP Electrodiagnostic Medicine; Visit Provider Specialist | DX: M25.512 Pain in left shoulder (principal); G89.29 Other chronic pain; Z09 Encounter for follow-up examination after completed treatment for conditions other than malignant neoplasm | CPT/HCPCS: 99213 ==

== ENCOUNTER → 2024-07-07 14:44 | Outpatient (BNVA) | payer MEDICARE, MEDICAID, SELFPAY | PROVIDERS: PCP Electrodiagnostic Medicine; Visit Provider Orthopaedic Surgery | DX: M47.22 Other spondylosis with radiculopathy, cervical region (principal) | CPT/HCPCS: 99213 ==

== ENCOUNTER → 2024-07-27 10:56 | Outpatient (BNVA) | payer MEDICARE, MEDICAID, SELFPAY | PROVIDERS: PCP Electrodiagnostic Medicine; Visit Provider Podiatrist Foot & Ankle Surgery | DX: M77.51 Other enthesopathy of right foot and ankle | CPT/HCPCS: 73630; 99213 ==

== ENCOUNTER 2024-09-01 14:30 | Outpatient (CLI) | payer MEDICARE, MEDICAID, SELFPAY ==
--- NOTE | 2024-09-01 14:34 | MM_ITS ---
WS: [id number] BILATERAL 3D TOMOSYNTHESIS DIGITAL SCREENING MAMMOGRAPHY WITH CAD CLINICAL INFORMATION: SCREENING HISTORY: Screening mammogram. No current complaints. COMPARISON: 2020 TECHNIQUE: Bilateral CC and MLO views. FINDINGS: Scattered fibroglandular densities bilaterally. No suspicious focal mass, asymmetry, calcifications, or architectural distortion. No evidence of malignancy. Incidental stable lymph node RIGHT axillary t ail. A few incidental punctate calcifications. MM/MM scr BI tomosynthesis [id number] IMPRESSION: DENSITY: There are scattered areas of fibroglandular density. BI-RADS: 2 - Benign. FOLLOW UP: 1 Year Follow-up Recommend return to annual screening mammography.
== END 2024-09-01 14:32 | disposition home or self-care (01) ==
PROVIDERS: PCP Electrodiagnostic Medicine; Visit Provider Nurse Practitioner Women's Health
DX: Z12.31 Encounter for screening mammogram for malignant neoplasm of breast (principal); R92.323 Mammographic fibroglandular density, bilateral breasts; R92.1 Mammographic calcification found on diagnostic imaging of breast
CPT/HCPCS: 77063; 77067

== ENCOUNTER → 2024-10-07 14:33 | Outpatient (BNVA) | payer MEDICARE, MEDICAID, SELFPAY | PROVIDERS: PCP Electrodiagnostic Medicine; Visit Provider Podiatrist Foot & Ankle Surgery | DX: M79.672 Pain in left foot (principal); R20.0 Anesthesia of skin | CPT/HCPCS: 99213 ==

== ENCOUNTER → 2024-10-20 14:07 | Outpatient (BNVA) | payer MEDICARE, MEDICAID, SELFPAY | PROVIDERS: PCP Electrodiagnostic Medicine; Visit Provider Internal Medicine Cardiovascular Disease | DX: I49.8 Other specified cardiac arrhythmias (principal); R06.02 Shortness of breath; R00.2 Palpitations; I10 Essential (primary) hypertension; I49.3 Ventricular premature depolarization; F41.8 Other specified anxiety disorders | CPT/HCPCS: 99204 ==

== ENCOUNTER → 2024-10-22 14:02 | Outpatient (BNVA) | payer MEDICARE, MEDICAID, SELFPAY | PROVIDERS: PCP Electrodiagnostic Medicine; Visit Provider Orthopaedic Surgery | DX: M47.22 Other spondylosis with radiculopathy, cervical region (principal); M54.9 Dorsalgia, unspecified; M48.062 Spinal stenosis, lumbar region with neurogenic claudication | CPT/HCPCS: 99214 ==

== ENCOUNTER 2024-11-02 11:05 | Outpatient (CLI) | payer MEDICARE, MEDICAID, SELFPAY ==
--- NOTE | 2024-11-02 11:45 | MR_ITS ---
WS: [id number] MRI LUMBAR SPINE NONCONTRAST HISTORY: back pain COMPARISON: None available. TECHNIQUE: Sagittal and axial multisequence imaging is submitted. Slight reversal of the normal cervical lordosis. Mild vertebral body encroachment upon the cervical c ord at C5-6. Normal lumbar alignment with no compression fractures or marrow edema. Mild disc desiccation at L5-S1. Conus terminates normally at L1-2 disc level. L1-L2: Mild annular disc bulging. No stenosis. L2-L3: Mild ligamentum flavum and facet arthritis. Very mild narrowing of the RIGHT foramen. L3-L4: Moderate ligamentum flavum and facet arthritis. Asymmetric disc bulging encroaching upon the v entral thecal sac. Asymmetric disc bulging to the RIGHT foramen. Very slight bilateral foraminal narr owing. Mild subarticular recess encroachment. L4-L5: Mild annular disc bulging with ligamentum flavum and facet arthritis. Disc encroachment upon t he subarticular recesses. There is a tiny central disc protrusion. Mild bilateral subarticular recess encroachment. Mild RIGHT foraminal stenosis. L5-S1: Mild osteophytic ridging with annular disc bulging. Shallow central disc protrusion. Disc prot rusion does contact the LEFT S1 nerve root. Mild to moderate bilateral foraminal stenosis. Paravertebral soft tissues are negative. Liver and spleen aren't enlarged. MR/MR lumbar spine wo con* [id number] IMPRESSION: 1. 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 There is encroachment upon the exiting L5 nerve roots. Additional dis c contact on the LEFT S1 nerve root. 2. L4-5: Mild bilateral subarticular recess encroachment. There is mild disc c ontact on the traversing L5 nerve roots. Mild RIGHT foraminal stenosis. 3. L3-4: Mild bilateral foraminal narrowing and RIGHT subarticular recess encr oachment. 4. No acute lumbar spine fracture.
== END 2024-11-02 11:06 | disposition home or self-care (01) ==
LOC: RAD 11:05
PROVIDERS: PCP Electrodiagnostic Medicine; Visit Provider Orthopaedic Surgery
DX: M51.360 Other intervertebral disc degeneration, lumbar region with discogenic back pain only (principal); M47.896 Other spondylosis, lumbar region; M99.63 Osseous and subluxation stenosis of intervertebral foramina of lumbar region; M99.64 Osseous and subluxation stenosis of intervertebral foramina of sacral region; M24.28 Disorder of ligament, vertebrae
CPT/HCPCS: 72148

== ENCOUNTER → 2024-12-01 15:45 | Outpatient (BNVA) | payer MEDICARE, MEDICAID, SELFPAY | PROVIDERS: PCP Electrodiagnostic Medicine; Visit Provider Orthopaedic Surgery | DX: M48.062 Spinal stenosis, lumbar region with neurogenic claudication (principal) | CPT/HCPCS: 99214 ==

== ENCOUNTER 2024-12-02 10:23 | Outpatient (RCR) | payer MEDICARE, MEDICAID, SELFPAY | END 2024-12-18 23:59 | disposition home or self-care (01) | LOC: SPT 10:23 | PROVIDERS: PCP Electrodiagnostic Medicine; Visit Provider Orthopaedic Surgery | DX: M54.9 Dorsalgia, unspecified (principal); G89.29 Other chronic pain | CPT/HCPCS: 97161 ==

== ENCOUNTER 2024-12-09 09:47 | Outpatient (CLI) | payer MEDICARE, MEDICAID, SELFPAY ==
--- NOTE | 2024-12-09 10:00 | USCV_ITS ---
Marlene Schmitz Age: 59 Gender: F : 1965 Exam Date: 12/09/2024 10:06 Ordering Phys: Caitlin Mcclendon MD ([email or web address]) Technologist: [place] [facility] [place]: chest pain sob BP: 125 / 70 HR: 64 Rhythm: Sinus Technical Quality: Adequate MEASUREMENTS (Male / Female) Normal Values 2D ECHO LV Diastolic Diameter PLAX 4.2 cm 4.2 - 5.9 / 3.9 - 5.3 cm IVS Diastolic Thickness 1.5 cm 0.6 - 1.0 / 0.6 - 0.9 cm IVS Systolic Thickness 1.7 cm LVPW Diastolic Thickness 1.4 cm 0.6 - 1.0 / 0.6 - 0.9 cm LVPW Systolic Thickness 1.8 cm LVOT Diameter 2.0 cm LV Ejection Fraction 2D Teich 62.5 % LV Ejection Fraction MOD 4C 57.9 % LV Ejection Fraction MOD 2C 78.7 % LV Ejection Fraction 2C AL 78.8 % LA Diameter 5.0 cm Aorta at Sinotubular Diameter 3.6 cm IVC Diameter 1.6 cm M-MODE LA Ao Ratio MM 1.1 AV Cusp Separation MM 3.0 cm DOPPLER AV Peak Velocity 184.0 cm/s LVOT Peak Velocity 174.0 cm/s AV Area Cont Eq vti 2.9 cm squared AV Area Cont Eq pk 3.1 cm squared MV Peak Velocity 128.0 cm/s MV Area PHT 4.3 cm squared Mitral E to A Ratio 1.4 TV Peak Velocity 189.5 cm/s TR Peak Velocity 229.0 cm/s TR Peak Gradient 21.0 mmHg TV Peak E Velocity 146.0 cm/s FINDINGS Left Ventricle Normal left ventricular size, systolic function and wall thickness, with no regional wall motion abnormalities. Left ventricular ejection fraction is estimated at 60 %. Grade I/IV diastolic dysfunction (abnormal relaxation filling pattern), normal to mildly elevated filling pressures. Right Ventricle The right ventricle is normal in size and function. Right Atrium The right atrium is normal in size. Left Atrium Moderately increased left atrial size. Mitral Valve Mild mitral annular calcification. No mitral valve stenosis. Trace mitral valve regurgitation. Aortic Valve Structurally normal aortic valve without significant sclerosis or stenosis. There is no aortic regurgitation. Tricuspid Valve Structurally normal tricuspid valve without significant stenosis or regurgitation. Pulmonary artery systolic pressure is normal. Pulmonic Valve Structurally normal pulmonic valve without significant stenosis. There is no pulmonic regurgitation. Pericardium Normal pericardium without effusion. Aorta Normal ascending aorta dimension. IVC The inferior vena cava appears normal. CONCLUSIONS Normal left ventricular size, systolic function and wall thickness, with no regional wall motion abnormalities. Left ventricular ejection fraction is estimated at 60 %. Grade I/IV diastolic dysfunction (abnormal relaxation filling pattern), normal to mildly elevated filling pressures. Moderately increased left atrial size. There is no pericardial effusion. No significant valve abnormalities. Right atrial pressure is around 5 mm of mercury. Caitlin Mcclendon MD (Electronically Signed) Final Date: 09 December 2024 19:22 S
== END 2024-12-09 09:48 | disposition home or self-care (01) ==
LOC: RAD 09:49
PROVIDERS: PCP Electrodiagnostic Medicine; Visit Provider Internal Medicine Cardiovascular Disease
DX: R06.02 Shortness of breath (principal); R00.2 Palpitations; I51.7 Cardiomegaly; I34.81 Nonrheumatic mitral (valve) annulus calcification; R93.1 Abnormal findings on diagnostic imaging of heart and coronary circulation
CPT/HCPCS: 93306

== ENCOUNTER 2024-12-19 06:30 | Outpatient (RCR) | payer MEDICARE, MEDICAID, SELFPAY | END 2025-01-15 23:59 | disposition home or self-care (01) | LOC: SPT 06:30 | PROVIDERS: PCP Electrodiagnostic Medicine; Visit Provider Orthopaedic Surgery | DX: M54.9 Dorsalgia, unspecified (principal); G89.29 Other chronic pain | CPT/HCPCS: 97110 ==

== ENCOUNTER → 2025-02-09 09:33 | Outpatient (BNVA) | payer MEDICARE, MEDICAID, SELFPAY | PROVIDERS: PCP Electrodiagnostic Medicine; Referring Provider Orthopaedic Surgery; Visit Provider Anesthesiology Pain Medicine | DX: M48.062 Spinal stenosis, lumbar region with neurogenic claudication (principal) | CPT/HCPCS: 99204 ==